=== PATIENT | female | born 1950 | race Caucasian/White ===

== ENCOUNTER 2018-09-08 11:41 | Emergency (ER) | payer OTHER ==
[2018-09-08] MEDS ORDERED: FAMOTIDINE 20 MG/2 ML VIAL IV ONE (13:22)
[2018-09-08] MEDS ORDERED: DIPHENHYDRAMINE 50 MG/ML VIAL ONE ×2 (13:22→14:09)
[2018-09-08] MEDS ORDERED: NA CHLORIDE 0.9% 1,000 ML ONE (13:22)
--- NOTE | 2018-09-08 14:40 | ER ---
Nurse's Notes [facility] Name: Patricia Resendez Age: 68 yrs Sex: Female : 1950 Arrival Date: 09/08/2018 Time: 11:43 Bed 30 Private MD: NELL ESTES Diagnosis: Rash and other nonspecific skin eruption Presentation: 09/08 11:59 Presenting complaint: Patient states: "I had a reaction to an antibiotic that the 1 dentist gave me and I went to Urgent Care last week and they gave me a shot and some pills, but the rash is getting worse instead of betters. Its all over my whole body and it itches so bad it isnt funny". Transition of care: patient was not received from another setting of care. Onset of symptoms was September 01, 2018. Risk Assessment: Do you want to hurt yourself or someone else? Patient reports no desire to harm self or others. Initial Sepsis Screen: Does the patient meet any 2 criteria? No. Patient's initial sepsis screen is negative. Does the patient have a suspected source of infection? No. Patient's initial sepsis screen is negative. Care prior to arrival: None. 11:59 Method Of Arrival: Ambulatory aj1 11:59 Acuity: HUYEN 4 aj1 Triage Assessment: 11:59 General: Appears in no apparent distress. comfortable, Behavior is calm, cooperative, aj1 appropriate for age. Pain: Denies pain. Neuro: Level of Consciousness is awake, alert, obeys commands. Cardiovascular: Patient's skin is warm and dry. Respiratory: Airway is patent Respiratory effort is even, unlabored, Respiratory pattern is regular, symmetrical. Historical: - Allergies: 11:59 Clindamycin; aj1 - PMHx: 11:59 Hypertension; Hypothyroidism; Hyperlipidemia; aj1 - Immunization history:: Adult Immunizations. - Social history:: Smoking status: Patient/guardian denies using tobacco. - Ebola Screening: : Patient denies travel to an Ebola-affected area in the 21 days before illness onset. Screenin:58 Abuse screen: Denies threats or abuse. Nutritional screening: No deficits noted. tw2 Tuberculosis screening: No symptoms or risk factors identified. Fall Risk None identified. Assessment: 12:56 General: Appears uncomfortable, slender, Behavior is appropriate for age. Pain: Denies tw2 pain. Neuro: Level of Consciousness is awake, alert, obeys commands, Oriented to person, place, time, situation. Cardiovascular: Capillary refill < 3 seconds Patient's skin is warm and dry. Respiratory: Airway is patent Respiratory effort is even, unlabored, Respiratory pattern is regular, symmetrical. GI: No signs and/or symptoms were reported involving the gastrointestinal system. : No signs and/or symptoms were reported regarding the genitourinary system. EENT: No signs and/or symptoms were reported regarding the EENT system. Derm: Rash noted that is urticaria, on all over pt states she was on clindamycin and she thinks that started it, went to urgent care 09/04 was given solumedrol injection and steroid dose pack, she has 3 days left of the steroid but it is not getting any better. 13:57 Reassessment: No changes from previously documented assessment. Patient and/or family tw2 updated on plan of care and expected duration. Pain level reassessed. Patient is alert, oriented x 3, equal unlabored respirations, skin warm/dry/pink. Patient states symptoms have not improved. provider notified.. 14:44 Reassessment: Patient appears in no apparent distress at this time. Patient and/or tw2 family updated on plan of care and expected duration. Pain level reassessed. Patient is alert, oriented x 3, equal unlabored respirations, skin warm/dry/pink. Patient states feeling better. 14:52 Reassessment: Patient appears in no apparent distress at this time. No changes from tw2 previously documented assessment. Patient and/or family updated on plan of care and expected duration. Pain level reassessed. Patient is alert, oriented x 3, equal unlabored respirations, skin warm/dry/pink. Patient states feeling better. Patient states symptoms have improved. Vital Signs: 11:59 BP 142 / 88; Pulse 92; Resp 18; Temp 98.4; Pulse Ox 98% on R/A; Weight 81.65 kg (R); aj1 Height 5 ft. 4 in. (162.56 cm) (R); Pain 0/10; 12:55 BP 158 / 88; Pulse 89; Resp 18; Pulse Ox 100% on R/A; tw2 13:58 BP 139 / 60; Pulse 78; Resp 17; Pulse Ox 100% on R/A; tw2 14:44 BP 134 / 72; Pulse 78; Resp 17; Pulse Ox 99% on R/A; tw2 11:59 Body Mass Index 30.90 (81.65 kg, 162.56 cm) aj1 ED Course: 11:43 Patient arrived in ED. sb2 11:43 NELL ESTES is Private Physician. sb2 11:59 Triage completed. aj1 11:59 Arm band placed on Patient placed in waiting room. aj1 12:48 Juan Novoa PA is PHCP. [facility] 12:48 Fletcher Aguilar MD is Attending Physician. [facility] 12:50 Bed in low position. Call light in reach. Pulse ox on. NIBP on. tw2 12:55 Delilah Peter, DAY is Primary Nurse. tw2 13:20 Missed attempt(s): 22 gauge in right antecubital area. Bleeding controlled, band aid tw2 applied, catheter tip intact. Inserted saline lock: 22 gauge in left antecubital area, using aseptic technique. 14:39 NELL ESTES is Referral Physician. [facility] 14:45 No provider procedures requiring assistance completed. tw2 14:52 IV discontinued, intact, bleeding controlled, No redness/swelling at site. Pressure tw2 dressing applied. Administered Medications: 13:25 Drug: diphenhydrAMINE 12.5 mg Route: IVP; Site: left antecubital; tw2 14:06 Follow up: Response: No adverse reaction; No change in condition tw2 13:28 Drug: Pepcid 20 mg Route: IVP; Site: left antecubital; tw2 14:06 Follow up: Response: No adverse reaction tw2 13:31 Drug: NS 0.9% 1000 ml Route: IV; Rate: 1 bolus; Site: left antecubital; tw2 14:44 Follow up: Response: No adverse reaction; IV Status: Completed infusion; IV Intake: tw2 1000ml 14:05 Drug: diphenhydrAMINE 12.5 mg Route: IVP; Site: left antecubital; tw2 14:45 Follow up: Response: No adverse reaction; Marked relief of symptoms tw2 Intake: 14:44 IV: 1000ml; Total: 1000ml. tw2 Outcome: 14:39 Discharge ordered by . [facility] 14:52 Discharged to home ambulatory. tw2 14:52 Condition: stable 14:52 Discharge instructions given to patient, Instructed on discharge instructions, follow up and referral plans. no drinking with medication, no driving heavy equipment, medication usage, Demonstrated understanding of instructions, follow-up care, medications, Prescriptions given X 2. 14:53 Patient left the ED. tw2 Signatures: Danika Burt RN RN aj1 Juan Novoa PA PA jmm Wise, Tara, RN RN tw2 Margarita Smiley sb2
--- NOTE | 2018-09-08 14:40 | EDPHYS ---
Physician Documentation [facility] Name: Patricia Resendez Age: 68 yrs Sex: Female : 1950 Arrival Date: 09/08/2018 Time: 11:43 Bed 30 Private MD: NELL ESTES ED Physician Fletcher Aguilar HPI: 09/08 13:10 This 68 yrs old Female presents to ER via Ambulatory with complaints of Rash. jmm 13:10 The patient's rash thought to be caused by medication. The rash is located on the body jmm diffusely. Onset: The symptoms/episode began/occurred gradually, 6 day(s) ago. Associated signs and symptoms: Pertinent positives: itching, Pertinent negatives: swelling of lips, swelling of throat, swelling of tongue. This is a 68 year old female with a history of htn, that presents to the ED with a diffuse rash. The patient was prescribed clindamycin for a tooth extraction and on September 02 developed a rash and immediately discontinued the abx. Patient states she was evaluated at an urgent care and prescribed a Medrol dose pack which decreased severity of symptoms. Patient states the rash has returned and complains of itchiness. Denies swelling to the throat, vomiting, or shortness of breath. . Historical: - Allergies: 11:59 Clindamycin; aj1 - PMHx: 11:59 Hypertension; Hypothyroidism; Hyperlipidemia; aj1 - Immunization history:: Adult Immunizations. - Social history:: Smoking status: Patient/guardian denies using tobacco. - Ebola Screening: : Patient denies travel to an Ebola-affected area in the 21 days before illness onset. ROS: 13:10 Constitutional: Negative for fever, chills, and weight loss, Cardiovascular: Negative jmm for chest pain, palpitations, and edema, Respiratory: Negative for shortness of breath, cough, wheezing, and pleuritic chest pain. 13:10 Skin: Positive for rash. 13:10 All other systems are negative. Exam: 13:10 Head/Face: atraumatic. Eyes: EOMI, no conjunctival erythema appreciated ENT: Moist jmm Mucus Membranes Neck: Trachea midline, Supple Chest/axilla: Normal chest wall appearance and motion. Cardiovascular: Regular rate and rhythm. No edema appreciated Respiratory: Normal respirations, no respiratory distress appreciated Abdomen/GI: Non distended, soft 13:10 Constitutional: The patient appears in no acute distress, alert, awake. 13:10 Skin: diffuse erythematous rash noted to the back, and extremities. . 13:10 Neuro: Orientation: is normal, Mentation: is normal, Memory: is normal. 13:10 Psych: Behavior/mood is pleasant, cooperative. Vital Signs: 11:59 BP 142 / 88; Pulse 92; Resp 18; Temp 98.4; Pulse Ox 98% on R/A; Weight 81.65 kg (R); aj1 Height 5 ft. 4 in. (162.56 cm) (R); Pain 0/10; 12:55 BP 158 / 88; Pulse 89; Resp 18; Pulse Ox 100% on R/A; tw2 13:58 BP 139 / 60; Pulse 78; Resp 17; Pulse Ox 100% on R/A; tw2 14:44 BP 134 / 72; Pulse 78; Resp 17; Pulse Ox 99% on R/A; tw2 11:59 Body Mass Index 30.90 (81.65 kg, 162.56 cm) aj1 MDM: 13:06 Patient medically screened. [facility] 14:36 Data reviewed: vital signs, nurses notes. Counseling: I had a detailed discussion with [facility] the patient and/or guardian regarding: the historical points, exam findings, and any diagnostic results supporting the discharge/admit diagnosis, the need for outpatient follow up, to return to the emergency department if symptoms worsen or persist or if there are any questions or concerns that arise at home. Response to treatment: the patient's symptoms have mildly improved after treatment. ED course: Decreased pruritus after administration of IVF and Benadryl. Patient will be prescribed steroids with taper and is advised to follow up with [facility] or dermatology. Patient given strict return precautions. Patient understood and agrees with the plan of care. . 09/08 13:07 Order name: Saline Lock; Complete Time: 13:32 [facility] Administered Medications: 13:25 Drug: diphenhydrAMINE 12.5 mg Route: IVP; Site: left antecubital; tw2 14:06 Follow up: Response: No adverse reaction; No change in condition tw2 13:28 Drug: Pepcid 20 mg Route: IVP; Site: left antecubital; tw2 14:06 Follow up: Response: No adverse reaction tw2 13:31 Drug: NS 0.9% 1000 ml Route: IV; Rate: 1 bolus; Site: left antecubital; tw2 14:44 Follow up: Response: No adverse reaction; IV Status: Completed infusion; IV Intake: tw2 1000ml 14:05 Drug: diphenhydrAMINE 12.5 mg Route: IVP; Site: left antecubital; tw2 14:45 Follow up: Response: No adverse reaction; Marked relief of symptoms tw2 Disposition: 09/08/18 14:39 Discharged to Home. Impression: Rash and other nonspecific skin eruption. - Condition is Stable. - Discharge Instructions: Drug Rash, Rash. - Prescriptions for Hydroxyzine HCl 25 mg Oral Tablet - take 1 tablet by ORAL route every 6 hours As needed; 30 tablet. Prednisone 20 mg Oral Tablet - take 3 tablets by ORAL route once daily for 12 days Please take 3 tabs by mouth daily for 3 days, then take 2 tabs by mouth daily for 3 days, then take 1 tab by mouth daily for 3 days, then take 1/2 tab by mouth daily for 3 days; 20 tablet. - Medication Reconciliation Form, Thank You Letter, Antibiotic Education, Prescription Opioid Use form. - Follow up: NELL ESTSE; When: 1 - 2 days; Reason: Recheck today's complaints, Continuance of care, Re-evaluation by your physician. Addendum: 09/10/2018 10:26 Co-signature as Attending Physician, Fletcher Aguilar MD. g s Signatures: Danika Burt RN RN aj1 Juan Novoa PA PA [facility] Delilah Peter RN RN tw2 Fletcher Aguilar MD MD Corrections: (The following items were deleted from the chart) 09/08 14:53 14:39 09/08/2018 14:39 Discharged to Home. Impression: Rash and other nonspecific skin tw2 eruption. Condition is Stable. Forms are Medication Reconciliation Form, Thank You Letter, Antibiotic Education, Prescription Opioid Use. Follow up: NELL ESTES; When: 1 - 2 days; Reason: Recheck today's complaints, Continuance of care, Re-evaluation by your physician. prashanth
== END 2018-09-08 14:53 | disposition home or self-care (01) ==
LOC: ER 11:41
DX: R21 Rash and other nonspecific skin eruption (principal); I10 Essential (primary) hypertension; Z88.3 Allergy status to other anti-infective agents
CPT/HCPCS: 96361; 96374; 96375; 99284; J7030

== ENCOUNTER 2020-05-11 06:19 | Day surgery (SDC) | payer OTHER ==
[2020-05-05 13:03] LABS: Urine Appearance CLOUDY; Urine Bilirubin NEGATIVE (NEG); Urine Blood NEGATIVE (NEG); Urine Color YELLOW; Urine Glucose NEGATIVE (NEG); Urine Protein NEGATIVE (NEG); Urine Specific Gravity 1.015 (1.005-1.030); Urine Urobilinogen 0.2 mg/dL (0.2-1.0); Urine pH 5.5 (5.0-7.0)
[2020-05-05 13:09] LABS: Absolute Lymphocytes (CBC) 1.6 K/uL (0.7-4.9); Basophils % 0.7 % (0-1.3); Hematocrit 37.5 % (36.0-45.0); Lymphocytes % 22.9 % (15.3-44.8); MPV 9.3 fL (7.6-11.3); RBC Red Blood Cell Count 4.05 M/uL (3.86-4.86)
[2020-05-05 13:10] LABS: Urine Microscopic Reflex ORDER UMIC
[2020-05-05 13:12] LABS: Protime INR 1.03
[2020-05-05 13:14] LABS: Potassium 4.2 mmol/L (3.5-5.1)
[2020-05-05 13:18] LABS: Urine RBC <5 /HPF (NONE SEEN)
[2020-05-05 13:19] LABS: Urine Bacteria >50 /HPF (<20); Urine Culture Reflex Order NOT NEEDED
--- OUTSIDE RECORDS SUMMARY | 2020-05-11 06:21 | XMS REPORT | Continuity of Care Document ---
:1950 Author Organization [facility] t Address [address] [place] [address] Care Team Providers Name Role Phone Ac RAMIREZ, Portillo Attending Clinician Pob, Lab Main Attending Clinician Unavailable Doctor Unassigned, Name Attending Clinician Unavailable Problems This patient has no known problems. Allergies, Adverse Reactions, Alerts This patient has no known allergies or adverse reactions. Medications This patient has no known medications. Procedures This patient has no known procedures. Encounters Start End Encounter Admission Attending Care Care Encounter Source Date/Time Date/Time Type Type Clinicians Facility Department ID 2020-02-18 2020-02-18 Telephone BRYANNA Shen [id number] 00:00:00 00:00:00 Kizzy Lemus [id number] [place] [id number] Professio [id number] [address] 2020-02-12 2020-02-12 Refill Ac [facility] [id number] 00:00:00 00:00:00 Kizzy Lemus [id number] [place] [id number] Profess[facility] [id number] [address] 2020-02-10 2020-02-10 Refill Ac ILIDANIA [id number] 00:00:00 00:00:00 Kizzy Lemus [id number] [place] [id number] Professio [phone] [facility] [address] [facility] 2020-02-04 2020-02-06 Merchandise Clerk Nick Barton [id number] 12:26:26 08:56:37 Visit Lab Main Allan [id number] [place] [id number] Prof[facility] [phone] [facility] [address] [facility] 2020-01-29 2020-01-29 Orders Doctor ELIZA [id number] 00:00:00 00:00:00 Only Unassigned, ELMIRA [id number] [place] [facility] [id number] [id number] 2020-01-20 2020-01-20 Orders Doctor ELIZA [id number] 00:00:00 00:00:00 Only Unassigned, ELM[place]A [id number] [place] [facility] [id number] [id number] Results This patient has no known results.
[2020-05-11] MEDS ORDERED: SCOPOLAMINE HYDROBROMIDE PATCH TD ONE (06:49)
[2020-05-11] MEDS ORDERED: Ringers Lactate 1,000 ML IV ONE ×2 (06:49→14:23)
[2020-05-11] MEDS ORDERED: CEFAZOLIN/SWI 2gm 2 GM/20 ML SYR ONE (06:49)
[2020-05-11] MEDS ORDERED: BUPIVACAINE 0.25% PF 30 ML VIAL ONE (07:11)
[2020-05-11] MEDS ORDERED: propofoL 200 MG/20 ML VIAL IV ONE (07:26)
[2020-05-11] MEDS ORDERED: FENTANYL CITR 250 MCG/5 ML ONE (07:27)
[2020-05-11] MEDS ORDERED: NS 0.9% VIAL 10 ML ONE ×2 (07:27→12:36)
[2020-05-11] MEDS ORDERED: MIDAZOLAM HCL 2 MG/2 ML INJ ONE (07:27)
[2020-05-11] MEDS ORDERED: LIDOCAINE 1% MPF 5 ML VIAL ONE (07:27)
[2020-05-11] MEDS ORDERED: VECURONIUM 10 MG/VIAL IV ONE ×2 (07:28→07:31)
[2020-05-11] MEDS ORDERED: LANO/MINERAL OIL/PETRO 3.5 GM ONE (07:31)
[2020-05-11] MEDS ORDERED: NA CHLORIDE 0.9% 100 ML IV ONE (07:44)
[2020-05-11] MEDS: VASOPRESSIN 20 UNIT/ML VIAL ONE ×2 (10:16→11:15)
[2020-05-11] MEDS: Ringers Lactate 1,000 ML IV ONE ×2 (11:22→11:24)
[2020-05-11] MEDS: CEFAZOLIN/SWI 1gm 1 GM/10 ML SYR ONE ×2 (11:28→11:33)
[2020-05-11] MEDS ORDERED: Phenylephrine HCl 10 MG/ML 1 ML VIAL ONE (11:41)
[2020-05-11] MEDS ORDERED: CEFAZOLIN SODIUM 1 GM/VIAL ONE (12:30)
[2020-05-11] MEDS ORDERED: EPHEDRINE SULF 50 MG/ML VIAL ONE (12:36)
[2020-05-11] MEDS ORDERED: KETOROLAC 30 MG/ML INJ ONE (13:14)
[2020-05-11] MEDS ORDERED: dexAMETHasone 10 MG/ML VIAL ONE (13:14)
[2020-05-11] MEDS ORDERED: ONDANSETRON 4 MG/2 ML VIAL ONE (13:32)
[2020-05-11] MEDS ORDERED: METHYLENE BLUE 0.5% 10 ML AMP ONE (13:44)
[2020-05-11] MEDS ORDERED: GLYCOPYRROLATE 0.2 MG/ML SYR ONE (14:03)
[2020-05-11] MEDS ORDERED: NA CHLORIDE 0.9% 250 ML ONE (14:31)
[2020-05-11] MEDS ORDERED: NEOSTIGMINE 1 MG/ML -5 ML ONE (14:53)
[2020-05-11] MEDS ORDERED: MORPHINE 4 MG/ML SYR IV PRN (16:25)
[2020-05-11] MEDS ORDERED: PROMETHAZINE INJ 25 MG/ML AMP IV PRN (16:26)
[2020-05-11] MEDS ORDERED: PROMETHAZINE 25 MG TABLET PO PRN (16:27)
[2020-05-11] MEDS ORDERED: ONDANSETRON 4 MG/2 ML VIAL IV PRN (16:28)
[2020-05-11] MEDS ORDERED: ONDANSETRON 4 MG (ODT) TAB PO PRN (16:29)
[2020-05-11] MEDS ORDERED: HYDROCODONE/APAP 5/325 MG TAB PO PRN (16:33)
[2020-05-11] MEDS ORDERED: Ringers Lactate 1,000 ML IV SCH (17:00)
[2020-05-11 17:10] VITALS: BMI 33.7
[2020-05-11 19:34] VITALS: O2SAT 96
[2020-05-11] MEDS: CEFAZOLIN/SWI 1gm 1 GM/10 ML SYR IVP SCH (20:00)
[2020-05-11] MEDS ORDERED: ATORVASTATIN 10 MG TAB PO SCH (21:00)
--- NOTE | 2020-05-11 23:27 | OP ---
Date of Procedure: 05/11/2020 Surgeon: Rochelle Gasca MD Preoperative Diagnoses: 1.Stage III anterior uterovaginal prolapse, incomplete. 2.Postmenopausal bleeding. 3.Occult stress urinary incontinence. 4.Rectocele. Postoperative Diagnoses: 1.Stage III incomplete uterovaginal prolapse. 2.Postmenopausal bleeding. 3.Endometriosis. 4.Significant left tubo-ovarian adhesions and sigmoid adhesions. 5.Significantly elongated cervix. 6.Posterior compartment defect alongside the anterior apical defect and occult stress urinary incont inence. Procedures Performed: Laparoscopic supracervical hysterectomy, bilateral salpingo-oophorectomy, cadence benoit is Dr. Rich; lysis of adhesions, left tubo-ovarian adhesions, and endometriosis excision, this took 50% of the hysterectomy case; then, Dr. Fraire was the intraoperative managed services consultant, who too k care of the sigmoid adhesion to the lateral wall as well as the tube and ovary; then anterior repai r, Dr. Rich was clerical administrative assistant; and posterior repair, left sacrospinous ligament fixation, cervicopex y, and perineorrhaphy, tension-free vaginal tape obturator, cystoscopy, which was just myself with [facility] as my journeyman operator assistant. Anesthesia: General endotracheal. Specimens: Uterus and bilateral tubes and ovaries. Complications: None. Drains: Mancia catheter. Antibiotics: Two doses Ancef in 3 hours apart. Findings: Anterior defect was the most significant defect for the patient. Then, this was followed by the apical defect. There was extreme cervical stenosis. It was difficult identifying the apex, b ut the apex was at -1. Posteriorly, there was an apical enterocele, however, the rectovaginal septum appeared to be intact. So, the prolapse was not very evident. There was no small bowel here in the enterocele sac, which was empty. Her POP-Q was +3, +5, -1, 5 cm moderate, a -1 and -2. The total v aginal length was 8 cm, anterior vaginal wall length however was longer from the prolapse, at least 1 1 cm as measured by the scalp. Condition: Stable. Indications: The patient was consented in the office after discussing all the options of vaginal rep air, abdominal repair, pessary use. She declined the pessary use, wanted to have surgical treatment as she has been suffering for 2 years and it has been significantly getting worse over the past 2 yea rs. She was initially seen in September and due to the COVID, has been postponed. At this time, unab le to tolerate the prolapse and dysfunction from the urination, so she decided to proceed with the pr ocedure. She had postmenopausal bleeding. The plan was to remove her uterus, tubes, and ovaries as well. At the time of the procedure, the patient was consented for this appropriately. The uterosacr al suspension or sacral colpopexy was planned ideally and if that was not possible, then vaginal repa ir as an alternative was discussed with the patient in the office and with the daughter this morning as well. She understood the entire plan. The patient is slightly forgetful and is a poor historian. Past surgical history was remarked as nothing; however, today I found out that she had some lung pr ocedure. She also had a knee procedure and had done well with anesthesia in the past. She also had an IUD that was stuck and was removed in the past, but no other history is known. Description Of Procedure: After 2 g of Ancef were given, she was taken back to OR, placed in supine fashion on the operating table. After general anesthesia was given, placed in a dorsal lithotomy pos ition. Using Crispin stirrups, arms were tucked by the side. Second IV was started and positioning wa s checked. Abdomen, vulva, vagina, and perineum and lateral thighs were all prepped and draped in a sterile fash ion. Mancia was placed to drain the bladder and attempt was made to identify the cervix, which was ex tremely tough due to stenosis. There were pucker that was seen behind the significant anterior prola pse. It was very suspicious if this was a dimple in the vaginal skin from chronic irritation and sca rring or cervix per se, so this was left alone here at this time without a manipulator. Then, went b ack up laparoscopically. Mancia was connected for retrograde filling. A 1 cm infraumbilical incision was made with a scalpel using the open laparoscopy technique. Fascia was incised, tagged with 0 Vicryl sutures, and peritoneum entered sharply. S-retractor was placed. Radha introduced. Site of entry checked after insufflation and unremarkable. Upper abdominal surfa ce was unremarkable. The patient was placed in Trendelenburg. A 5 mm left lower quadrant and right lower quadrant ports were placed under direct vision. A 10 suprapubic port was also placed without a ny problems. Then, we went ahead and looked around and there were adhesions of the bowel to the left lateral wall. These were all taken down from the sigmoid colon. Also, the small bowel was complete ly free, but filling the pelvic cavity and this was positioned in the upper abdomen after placing the patient in steep Trendelenburg. The uterus was well visualized at this point and by palpating the c ervix and proceeding down, taking down, further cervix was identified. The external os opened up wit h the tip of a hemostat and then attempt was made to place a small VCare, however, this would not adv ance into the left due to fear of any bladder perforation or anterior cul-de-sac perforation. So, e EEA sizer was used for manipulation while I did the procedure. Then, the left tube and ovary were dissected free from the lateral adhesions. Then, the area between the sidewall and the sigmoid were opened up. Then, Dr. Fraire was consulted. I also took down ad hesions in other places, which were tethering to the lateral wall as well as to the upper abdominal s urfaces in a sharp fashion. When Dr. Fraire came, he took down the colon from the ovary and the tube. Then, the rest of the co lynn and the ovary and the tube were dissected away from their adhesions and the IP ligament, mesosalp inx were all taken and they were kept with the specimen. Down ligament was taken down on this side. A single-tooth tenaculum was placed on the uterus. The fundus retract as there was no adequate retr action from below. Then, once came down to the vessels on the left side, then dissection was perform ed on the right side. The tube and ovary were left alone. Then, mesosalpinx and tube, utero-ovarian ligament, round ligament were all taken down. Broad ligament was opened up anteriorly and connected . It was very difficult to identify the bladder flap. It appeared to be significantly lower, howeve r, the manipulator was significant higher. However, the cervix appeared to be long and it was at donato st 1-1/2 times the size of the length of the uterus. This is very confusing to see how this could be and removed. Once the vessels were taken down on both sides, then tried to dissect the bl adder down. Finally, VCare was introduced after some time. Once this was in place, then a supracerv ical hysterectomy was performed, vessels were taken down up to the right side, dissection was perform ed. The vessels were taken down with the LigaSure and monopolar hook blade was used to perform a tra chelectomy, and at least 4 cm of the cervix was left with the uterus and the specimen was detached an d was placed in an EndoCatch bag. The left ovary and tube were taken down with the LigaSure and plac ed in the EndoCatch bag as well. Thorough irrigation and suction were performed. There was adequate hemostasis. No evidence of any injury to the lateral structures. Went into to make sure that everything was brought in together into the EndoCatch bag. EndoCatch bag was pulled out through the suprapubic incision. An incision was extended after all the trocars were pulled out. Incision was extended at the suprapubic site and the fascia was extended as well and th en the specimen pulled out. Fascia was closed with the help of a 0 PDS suture. All the skin incisio ns closed with the help of tawanda. The umbilical fascial incision was closed with the help of 0 Tristan ryl sutures tied to each other. This area was then draped. Then, went down vaginally, anterior repair was performed. The anterior w all at least 5 to 5.5 cm proximal from the external meatus or 6 cm from the external meatus to the an terior wall down was held with Allis clamps. Then, the rest of the vagina was at least another 6 cm. While on traction to the cervix, about 3 cm of the cervix appears to be left behind. So, all the a nterior midline was injected with dilute vasopressin 20 units mixed with 40 cc of normal saline. A 4 0 units was injected in the midline on the lateral side. Incision was made with scalpel. Then, [place] enbaum scissors were used to dissect the bladder out keeping the fascia with epithelial layer, was ab le to get into the space and reduce the bladder down with the help after it was reduced adequately. Then, it was plicated with the help of 0 PDS. Then, went ahead and closed the 3 cm of the vagina in the midline. Then, transversely taking it down, taking the vaginal wall out with the help of a long Caridad placed to trim and not create the redundant area. Once all this was done, the anterior vaginal flap was connected to the distal flap near the cervix, so the closure was done in a transverse fashi on and then the 2 lateral incisions were closed with the help of a 2-0 Vicryl in a continuous running fashion using horizontal mattress sutures. Once this anterior repair was done, there was adequate r eduction of the prolapse. Then, mid urethral area was picked up and the anterior vaginal length was 7 cm to the cervix. There was no significant lateral oviedo shortening or narrowing of the vaginal can al. So, went ahead and held the mid urethral area with the help of Allis clamps on each side. Dilut e vasopressin 10 cc was used to inject in the midline and lateral sides. Then, placing the legs in h igh lithotomy, incision was made in the midline with the knife. Dissection performed to create tract on both sides under the inferior pubic ramus into the obturator space at a 45-degree angle to the ho rizontal and vertical planes pointing towards the ipsilateral shoulder, hugging the inferior pubic ra mus. The wing guides were placed, trocars were passed in the usual fashion exiting at least 2 cm lat eral to the groin fold and below the adductor tendon above the level of the horizontal line dropped a t the external meatus. On both sides, the spikes were passed in the usual fashion, tensioned appropr iately, and then the mesh was cut, flushed with the skin on both sides, and the skin closed with the help of Dermabond. The graft was irrigated, tensioning was visualized and made sure that the sling w as loose enough, but not too loose. Closed the vaginal epithelium with a continuous running 3-0 Vicr yl suture in a continuous running locked fashion. Then, cystoscopy was performed, was not very easy with all the transitional epithelium that appeared to be corrugated. There was also evidence of trab eculations consistent with overactive bladder. The ureteric orifice on the left was very well visual ized, on the right side appeared to be slightly on the much more lateral aspect where the bladder was reduced by placing the PDS sutures. So, methylene blue was given. The patient had 300 cc of urine output during the first part of the procedure and so that was an adequate amount of urine. The plan was to come back and look at the right ureteric orifice and the stream. So, put the catheter back an d attached to Mancia bag for drainage after draining the bladder fluid that was filled out, so the emir e urine output could be measured. Once this was done, then went posteriorly. Posteriorly, the defec t was not in the distal rectovaginal septum, not in the distal 2/3. Mostly, it was in the proximal 1 /3 where there was appearance of an enterocele. So, it was difficult to get to the sacrospinous liga ment. However, this was approached and had to be taken in order for me to fix the apex, so that ther e was no ligament prolapse to the most important fixation point. So, made 30 cc of dilute vasopressin injected in the midline and on the sides of the perineum and mid line on the posterior wall all the way to the level of the cervix. Then, a scalpel was used to make a mary kate-shaped incision of the perineum. Then, this was extended superiorly with the scalpel as we ll as scissors and then all the septum and the enterocele were dissected away all the way to the top. Cervix was palpable and visualized the cervical stump. So, at this point, what I did was opened up the right pararectal space to the right ischial spine, however, this is not prominent and it appeare d to not open up very well. So, opened the left pararectal space and ischial spine could be easily r eached and was cleaned out. The sacrospinous ligament was very well exposed, so decided to do a left sacrospinous fixation. So, using the Capio device, Prolene sutures went ahead and placed 2 in the m id ligament and 1 more lateral to it, little bit closer to the spinous, a centimeter away, and the fi rst 1 was placed in the mid ligament. These 2 were held on 2 separate clamps to identify, which was the medial and lateral. Then, the cerv ix was exposed and the sutures were passed through it, so that they can be well fixated and the apex could be held in place. These sutures were held on clamps. Then, the vaginal epithelium was slightly trimmed in the posterio r wall. Then started closure, closing the enterocele as well. The vaginal epithelium was closed wit h the help of 2-0 Vicryl, came down at least 2/[address] the posterior incision. Then, the sac rospinous sutures were tied down taking the cervix all the way to the ligament. Once this was done a nd was nicely tacked in place, the cervix appeared to be at -7. Then, the vaginal epithelium was gordon sed in a continuous running horizontal mattress fashion all the way down to the vestibule. Just abov e the vestibule, the suture was tied. Then, the perineal body reconstruction was done slightly. The re was not a huge tear. This was brought together with the help of 3-0 Vicryl continuous running sti tch and then tied inside the vestibule. Rectal exam was performed and there was no evidence of any s utures here. Mancia was removed. There was 300 cc of light methylene blue tinted urine. Cystoscopy was performed. The stream from the both sides was visualized. The left ureteric orifice was very well visualized. At the right, I could just see a faint stream, but the orifice itself was a bit more lateral with a 30 degree scope. Since, there were 2 jets and there was adequate urine, there was no evidence of an y mesh in the bladder from the sling, no other tumors in the bladder, the bladder was drained, Mancia was replaced, attached to bladder bag. Vaginal packing was placed. Instrument, needle, and sponge c ounts x4 were correct at the end of the case. The patient tolerated the procedure well. EBL was 100 . Urine output was 600. She will be admitted overnight in the hospital. She will be discharged mendoza e with a Mancia catheter. She is already on Macrobid. She will continue that. She will call for fol [facility] appointment on Sunday for a voiding trial. Vaginal packing will be removed tomorrow. CBC and BMP in the morning. Ancef 2 more doses to be given. Due to the long duration of the case, SCDs orde red and home medications restarted for tomorrow. Her daughter was updated on the procedure and all t he findings and acknowledged understanding. BERT/BUDDY Voice ID: [id number] Report ID: [id number]
[2020-05-12] MEDS: CEFAZOLIN/SWI 1gm 1 GM/10 ML SYR IVP SCH (04:00)
[2020-05-12 06:26] LABS: Absolute Lymphocytes (CBC) 1.2 K/uL (0.7-4.9); Basophils % 0.4 % (0-1.3); Hematocrit 29.4 % (36.0-45.0); MPV 8.8 fL (7.6-11.3); RBC Red Blood Cell Count 3.16 M/uL (3.86-4.86)
[2020-05-12] MEDS ORDERED: LEVOTHYROXINE SOD 0.05 MG TABLET PO SCH (06:30)
[2020-05-12 06:38] LABS: Potassium 4.2 mmol/L (3.5-5.1)
[2020-05-12 07:29] VITALS: BP 92/42; TEMP 98.4
[2020-05-12] MEDS ORDERED: hydroCHLOROthiazide 12.5 MG CAP PO SCH (09:00)
[2020-05-12] MEDS ORDERED: lisinopriL 20 MG TAB PO SCH (09:00)
== END 2020-05-12 10:30 | disposition home or self-care (01) ==
LOC: OR 06:19 → 2ND-WC 16:11 → OR 05-12 10:30
PROVIDERS: ATTEND Obstetrics & Gynecology
PROC: 0UT24ZZ Resection of Bilateral Ovaries, Percutaneous Endoscopic Approach (ICD-10-PCS; 2020-05-11)
PROC: 0UT74ZZ Resection of Bilateral Fallopian Tubes, Percutaneous Endoscopic Approach (ICD-10-PCS; 2020-05-11)
PROC: 0JQC0ZZ Repair Pelvic Region Subcutaneous Tissue and Fascia, Open Approach (ICD-10-PCS; 2020-05-11)
PROC: 0HQ9XZZ Repair Perineum Skin, External Approach (ICD-10-PCS; 2020-05-11)
PROC: 0USG7ZZ Reposition Vagina, Via Natural or Artificial Opening (ICD-10-PCS; 2020-05-11)
PROC: 0UT94ZL Resection of Uterus, Supracervical, Percutaneous Endoscopic Approach (ICD-10-PCS; principal; 2020-05-11 07:30)
DX: N81.2 Incomplete uterovaginal prolapse (principal); N95.0 Postmenopausal bleeding; N39.3 Stress incontinence (female) (male); N81.6 Rectocele; N80.0 Endometriosis of uterus; D25.9 Leiomyoma of uterus, unspecified; Z20.828 Contact with and (suspected) exposure to other viral communicable diseases
CPT/HCPCS: 58542; 57282; 57250; 85025 ×2; 80048 ×2; 36415 ×2; 86900; 86850; 85610; 86901; 88307; 85730; U0002; J2704; J2370; J2250; J3010; J1100; J2710; J0690 ×5; Q0138; J7120 ×5; J7050; J2405; 81003; 81015